=== PATIENT | female | born 1940 | race Caucasian/White ===

== ENCOUNTER 2021-01-11 11:36 | Inpatient (IN) | payer BC, MEDICARE, SELFPAY ==
[~2021-01-11] VITALS: Ht 160 cm; Wt 64.0 kg
[2021-01-11] MEDS ORDERED: CALC600C3 PO (11:53)
[2021-01-11] MEDS ORDERED: fentaNYL 100 MCG/2 ML INJECTION (J3010) IV ONE (12:00)
--- NOTE | 2021-01-11 12:30 | REP ---
INDICATION: trauma. COMPARISON: None. TECHNIQUE: AP pelvis, AP and cross-table lateral right hip. FINDINGS: There is a comminuted fracture of the intertrochanteric region of the proximal right femur, with a separate lesser trochanter fragment. There is medial angulation of the distal femoral shaft. No other fracture or dislocation is seen. There are mild degenerative changes at the hip joints bilaterally symmetrically. There are degenerative changes of the lower lumbar spine. IMPRESSION: Comminuted fracture intertrochanteric region proximal right femur. <Electronically signed by Reza Sanchez > 01/11/21 1133
--- NOTE | 2021-01-11 12:32 | REP ---
INDICATION: preop. COMPARISON: None. TECHNIQUE: SINGLE PORTABLE AP VIEW OF THE CHEST WAS PERFORMED. FINDINGS: THERE IS NO ACUTE INFILTRATE OR PULMONARY EDEMA. LUNGS ARE CLEAR. HEART IS NOT SIGNIFICANTLY ENLARGED. MEDIASTINAL SILHOUETTE IS UNREMARKABLE. THE VISUALIZED OSSEOUS STRUCTURES ARE INTACT. IMPRESSION: NO ACUTE PULMONARY DISEASE. <Electronically signed by Reza Sanchez > 01/11/21 [id number]
[2021-01-11 12:33] LABS: HEMATOCRIT 40.8 % (36.0-47.0); HEMOGLOBIN 13.4 g/dl (12.0-15.5); MEAN CORPUSCULAR HEMOGLOBIN 31.2 pg (27.0-33.0); MEAN CORPUSCULAR HGB CONC 32.8 g/dl (32.0-36.5); MEAN CORPUSCULAR VOLUME 95.1 fl (80.0-96.0); PLATELET COUNT, AUTOMATED 235 10^3/uL (150-450); RED BLOOD COUNT 4.29 10^6/uL (4.00-5.40); WHITE BLOOD COUNT 7.6 10^3/uL (4.0-10.0)
[2021-01-11] MEDS ORDERED: hydrALAZINE 20MG/ML 1ML VIAL (J0360 PER 20MG) IV STA (12:43)
[2021-01-11 12:57] LABS: INR 0.95; PROTHROMBIN TIME 12.9 SECONDS (12.5-14.3)
[2021-01-11 13:01] LABS: BLOOD UREA NITROGEN 14 MG/DL (7-18); CALCIUM LEVEL 8.8 MG/DL (8.8-10.2); CARBON DIOXIDE LEVEL 29 MEQ/L (21-32); CHLORIDE LEVEL 108 MEQ/L (98-107); CREATININE FOR GFR 0.61 MG/DL (0.55-1.30); GLOMERULAR FILTRATION RATE > 60.0 (>32); GLUCOSE, FASTING 109 MG/DL (70-100); POTASSIUM SERUM 3.9 MEQ/L (3.5-5.1); SODIUM LEVEL 141 MEQ/L (136-145)
[2021-01-11] MEDS ORDERED: ESSETAB4 PO (13:02)
[2021-01-11] MEDS ORDERED: MORPHINE 4 MG/ML 1ML VIAL/SYRINGE (J2270) As Ordered ONE (13:45)
[2021-01-11] MEDS ORDERED: MORPHINE 4 MG/ML 1ML VIAL/SYRINGE (J2270) IV PRN (13:45)
[2021-01-11] MEDS ORDERED: MOM 30ML SUSPENSION UDC PO PRN (14:00)
[2021-01-11] MEDS ORDERED: MORPHINE 2 MG/ML 1ML VIAL (J2270) IV PRN ×2 (14:00→18:00)
--- NOTE | 2021-01-11 14:13 | HPEPDOC ---
[facility] Medical History & Physical Date of Admission Jan 11, 2021 Date of Service: Jan 11, 2021 History and Physical Chief complaint: Presented to ER with right hip pain History of present illness: Patient is an 80-year-old female who is not seen a provider in greater than 25 years who presented to the emergency room after falling in a [employer] parking lot in reporting right hip pain. Patient reported that she was ambulating in the parking lot at stumbled when her shoe caught the pavement. Patient landed on her right side. Upon trying to get up. Patient was unable to bear any weight on her right leg reported excruciating pain and was brought to the emergency room for further evaluation. Patient reports that upon arrival, her pain was a 10/10 currently is a 6/10 dull aching aggravated with movement. Patient denies any loss of consciousness or head trauma. Denies any chest pain, short of breath, palpitations, nausea, vomiting, abdominal pain consultation, diarrhea. Denies any urinary discomfort. Has not experienced any recent fevers or chills. Patient reports that 2 weeks prior, she was able to ambulate without limitations because of her arthritis, but has not experience any chest pain or shortness of breath upon ambulating 2 flights of stairs. 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 Review of Systems: 10 point review of systems complete, all negative otherwise stated in HPI Physical exam: - Vitals: BP [188/97], HR [80], RR [18], Sat [97%RA], Temp [99.5F] - General: Lying in bed, No acute distress, Speaking in full sentences, AAOx3 - HEENT: NC, AT, PERRLA - CVS: RRR, +S1S2 - Lungs: Fair air entry bilaterally, No appreciable wheezing / rales / rhonchi - Abdomen: Soft, Non-distended, Non-tender - Extremities: No lower extremity edema, No calf tenderness, right lower extremity appears shorter and externally rotated - Neuro: No focal motor or sensory deficit - Skin: No visible rashes Labs: See below Imaging: XR Hip / Pelvis 01/11: Comminuted fracture intertrochanteric region proximal right femur. CXR 01/11: No acute pulmonary disease. EKG: See below Assessment and Plan: Right hip pain - likely 2/2 comminuted fracture of intertrochanteric region proximal right femur - 2/2 mechanical fall - Patient is reporting currently that right hip pain - Physical reveals shorter and externally rotated right leg - Imaging noted above - EKG and chest x-ray have been reviewed - Patient is currently medically optimized at low to moderate risk for low-risk surgery - Orthopedic surgery has been called on consultation for correction of right hip fracture - Will keep patient NPO - Will start pain control with morphine Hypertensive urgency - BP currently is systolic of 180 - s/p Hydralazine in the ER - Will start Amlodipine PO - Will start Labetalol (Hold for SBP <16) DVT prophylaxis - Will start Heparin Vital Signs Vital Signs Date Time Temp Pulse Resp B/P (MAP) Pulse Ox O2 Delivery O2 Flow Rate FiO2 01/11/21 13:46 18 01/11/21 13:15 188/97 (127) 01/11/21 13:01 80 97 01/11/21 11:46 99.5 Room Air Laboratory Data Labs 24H Laboratory Tests 2 01/11/21 12:27: Nucleated Red Blood Cells % (auto) 0.0, Prothrombin Time 12.9, Prothromb Time International Ratio 0.95, Anion Gap 4L, Glomerular Filtration Rate > 60.0, Calcium Level 8.8 CBC/BMP Laboratory Tests 01/11/21 12:27 Home Medications Scheduled Calcium Carbonate/Vitamin D3 (Calcium 600+D Softgel) 1 Each Capsule, 1 CAP PO DAILY Multivitamin with Folic Acid (One Daily Multivitamin Tablet) 400 Mcg Tablet, 1 TAB PO DAILY Allergies Coded Allergies: No Known Allergies (Unverified , 01/11/21) MICHAEL THAKKAR MD Jan 11, 2021 14:13
--- NOTE | 2021-01-11 16:11 | ECGEPIP ---
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
[2021-01-11 16:19] LABS: RSV AMPLIFICATION NEGATIVE (NEGATIVE)
[2021-01-11 18:13] VITALS: BP 158/72
[2021-01-11] MEDS: HEPARIN SOD (PORCINE) 5000UNITS/ML 1ML VIAL/SYRINGE SC SCH ×2 (18:27→20:00)
[2021-01-11] MEDS ORDERED: fentaNYL 100 MCG/2 ML INJECTION (J3010) As Ordered ONE (18:28)
[2021-01-11] MEDS ORDERED: propofoL 200 MG/20 ML VIAL As Ordered ONE (18:28)
[2021-01-11] MEDS ORDERED: ROCURONIUM BROMIDE 50 MG/5 ML VIAL As Ordered ONE ×2 (18:28→21:22)
[2021-01-11] MEDS ORDERED: ACETAMINOPHEN 1000MG 100ML IV BTL (OFIRMEV) (J0131 PER 10MG) As Ordered ONE (18:28)
[2021-01-11] MEDS ORDERED: ONDANSETRON 4MG/2ML VIAL As Ordered ONE (18:28)
[2021-01-11] MEDS ORDERED: SUGAMMADEX SODIUM 500 MG/5 ML VIAL (BRIDION) As Ordered ONE (18:28)
[2021-01-11] MEDS ORDERED: LIDOCAINE 2% 100MG/5ML SDV (FOR ANES.) As Ordered ONE (18:28)
[2021-01-11] MEDS ORDERED: PHENYLephrine 500MCG 5ML (100MCG/ML) SYRINGE As Ordered ONE ×2 (18:28→21:03)
[2021-01-11] MEDS ORDERED: dexameTHASONE 4 MG/ML 1ML VIAL (J1100 PER 1MG) As Ordered ONE (18:28)
[2021-01-11] MEDS ORDERED: MIDAZOLAM INJ 2MG/2ML VIAL (J2250 PER 1MG) As Ordered ONE (18:28)
[2021-01-11] MEDS ORDERED: ePHEDrine SULFATE 25 MG/5 ML(5MG/ML) SYRINGE As Ordered ONE (18:28)
[2021-01-11] MEDS: amLODIPine 5 MG TAB PO SCH (18:35)
[2021-01-11] MEDS: LABETALOL 100MG/20ML VIAL IV SCH ×2 (18:36→19:59)
[2021-01-11] MEDS: DOCUSATE SODIUM 100MG CAPSULE PO SCH (19:59)
[2021-01-11 20:00] VITALS: BP 167/87
[2021-01-11] MEDS ORDERED: ceFAZolin 2 GM/D5W 50 ML IV BAG (J0690 PER 500MG) As Ordered ONE (20:49)
[2021-01-11] MEDS ORDERED: TRANEXAMIC ACID 100 MG/ML 10ML VIAL As Ordered ONE (21:48)
[2021-01-11] MEDS ORDERED: HYDROmorphone HCL 2 MG/ML 1ML VIAL (J1170) As Ordered ONE (22:12)
[2021-01-12] VITALS (12 sets, daily range): BP systolic 111–160; BP diastolic 55–97
[2021-01-12] MEDS ORDERED: ceFAZolin SOD 2 GM in IV 1 EA IV SCH (01:00)
[2021-01-12] MEDS ORDERED: fentaNYL 100 MCG/2 ML INJECTION (J3010) IV PRN (01:05)
[2021-01-12] MEDS ORDERED: HYDROMORPHONE HCL 0.5 MG/ 0.5 ML SYRINGE (J1170 PER 1) IV PRN (01:05)
[2021-01-12] MEDS ORDERED: oxyCODONE 5MG TAB PO PRN (01:05)
[2021-01-12] MEDS ORDERED: LR 1,000 ML IV SCH (01:05)
[2021-01-12] MEDS ORDERED: ONDANSETRON 4MG/2ML VIAL IV PRN (01:05)
[2021-01-12] MEDS: LABETALOL 100MG/20ML VIAL IV SCH ×2 (03:00→08:51)
[2021-01-12 05:23] LABS: BASO % 0.1 % (0.0-1.0); HEMATOCRIT 28.8 % (36.0-47.0); LYMPH % 10.3 % (24.0-44.0); MEAN CORPUSCULAR HEMOGLOBIN 32.2 pg (27.0-33.0); MEAN CORPUSCULAR HGB CONC 33.7 g/dl (32.0-36.5); MEAN CORPUSCULAR VOLUME 95.7 fl (80.0-96.0); MONO # 0.6 10^3/uL (0.0-0.8); MONO % 6.8 % (2.0-8.0); NEUTROPHILS # 7.8 10^3/uL (1.5-8.5); NEUTROPHILS % 82.5 % (36.0-66.0); PLATELET COUNT, AUTOMATED 186 10^3/uL (150-450); RED BLOOD COUNT 3.01 10^6/uL (4.00-5.40); WHITE BLOOD COUNT 9.5 10^3/uL (4.0-10.0)
[2021-01-12 05:30] LABS: HEMOGLOBIN 9.7 g/dl (12.0-15.5)
[2021-01-12] MEDS: ACETAMINOPHEN TAB 650MG DOSE (2X325MG) PO PRN ×3 (05:42→21:34)
[2021-01-12] MEDS: HEPARIN SOD (PORCINE) 5000UNITS/ML 1ML VIAL/SYRINGE SC SCH ×3 (05:43→21:33)
[2021-01-12 05:44] LABS: BLOOD UREA NITROGEN 16 MG/DL (7-18); CALCIUM LEVEL 7.9 MG/DL (8.8-10.2); CARBON DIOXIDE LEVEL 26 MEQ/L (21-32); CHLORIDE LEVEL 109 MEQ/L (98-107); CREATININE FOR GFR 0.54 MG/DL (0.55-1.30); GLOMERULAR FILTRATION RATE > 60.0 (>32); GLUCOSE, FASTING 165 MG/DL (70-100); MAGNESIUM LEVEL 1.8 MG/DL (1.8-2.4); POTASSIUM SERUM 4.1 MEQ/L (3.5-5.1); SODIUM LEVEL 141 MEQ/L (136-145)
[2021-01-12] MEDS: DOCUSATE SODIUM 100MG CAPSULE PO SCH ×2 (08:54→21:33)
[2021-01-12] MEDS: amLODIPine 5 MG TAB PO SCH (08:54)
--- NOTE | 2021-01-12 09:19 | REP ---
INDICATION: IM NAIL IN OR. COMPARISON: Radiographs 01/11/2021. TECHNIQUE: Multiple C-arm views right femur. FINDINGS: There is placement of metallic internal fixation, including an intramedullary kavon, for a comminuted fracture of the proximal right femur. The osseous structures are well-aligned. There is a separate lesser trochanter fragment. IMPRESSION: 338 seconds fluoroscopy time utilized. <Electronically signed by Reza Sanchez > 01/12/21 0915
--- NOTE | 2021-01-12 11:06 | IPNPDOC ---
Text Note Date of Service The patient was seen on 01/12/21. NOTE Subjective: Patient is an 80-year-old female who is not seen a provider in greater than 25 years who presented to the ER after falling in a [employer] parking lot in reporting right hip pain. Patient was found to have a right hip fracture and was admitted to the hospitalist service for further evaluation and treatment. Orthopedic surgery was called on consultation. Patient was seen and examined at the bedside. Patient reports that she has had an uneventful evening. She denies any chest pain, shortness of breath or palpitations. Has not experience any abdominal pain, diarrhea, or urinary discomfort Objective: Vitals (See below) General: Lying in bed, appears comfortable, AAOx3 HEENT: NC, AT CVS: +S1S2 Lungs: Fair air entry b/l, no appreciated wheezing, rhonchi or rales Abdomen: Soft, nondistended and nontender Extremities: - Edema, - Calf tenderness Imaging: XR Hip / Pelvis 01/11: Comminuted fracture intertrochanteric region proximal right femur. CXR 01/11: No acute pulmonary disease. Assessment and Plan: Right hip pain - likely 2/2 comminuted fracture of intertrochanteric region proximal right femur - 2/2 mechanical fall - Patient has reported improvement of right hip pain. She will be working with physical therapy today - Imaging noted above - EKG and chest x-ray have been reviewed - s/p surgical correction 01/11/2021 - Orthopedic surgery on consultation; appreciate their input - Will discontinue morphine; will start tramadol PRN s/p Hypertensive urgency - likely 2/2 pain - BP currently is well controlled - s/p Hydralazine in the ER - Will DC Labetalol - c/w Amlodipine DVT prophylaxis - c/w Heparin Disposition: - Will start PT / OT; will likely require rehabilitation VS,Fishbone, I+O VS, Fishbone, I+O Laboratory Tests 01/11/21 12:27 01/12/21 05:11 Vital Signs Date Time Temp Pulse Resp B/P (MAP) Pulse Ox O2 Delivery O2 Flow Rate FiO2 01/12/21 08:54 81 130/62 01/12/21 05:15 97.2 17 97 Room Air 01/12/21 04:15 1.0 I&O- Last 24 Hours up to 6 AM 01/12/21 06:00 Intake Total 2120 ml Output Total 375 ml Balance 1745 ml MICHAEL THAKKAR MD Jan 12, 2021 11:06
--- NOTE | 2021-01-12 11:33 | ER ---
ER CONSULTATION DATE: 01/11/2021 TIME: 5 P.M. CONSULTING SERVICE: Orthopedic surgery. CONSULTING PHYSICIAN: Rashad Dunne MD. HISTORY OF PRESENT ILLNESS: This is an 80-year-old female with a right intertrochanteric fracture. The patient is a very pleasant 80-year-old community ambulator who sustained a ground-level fall after attending [employer] services this morning on 01/11/2021. The patient presented to the [facility] Emergency Department after she was unable to bear weight to the right hip. The patient described pain with attempted motion of the right hip. Orthopedic surgery was consulted for the aforementioned injury and she was indicated for a right hip cephalomedullary nail for her right intertrochanteric fracture. PAST MEDICAL HISTORY: Bilateral knee arthritis. Denies other medical issues. PAST SURGICAL HISTORY: The patient had a left knee arthroscopy decades prior. ALLERGIES: The patient denies. CURRENT MEDICATIONS: Vitamin D. SOCIAL HISTORY: The patient denies smoking. Social alcohol. Denies any IV drug use. Lives alone. Denies recent travel or sick contacts. REVIEW OF SYSTEMS: 14-point review of systems is negative unless is otherwise described in the HPI above. PHYSICAL EXAMINATION: Alert to person, time, and place. Right lower extremity the patient's right hip was in flexion, abduction, and external rotation on presentation. The patient had pain with a positive log roll sign. The patient otherwise had intact motor strength to the EHL, FHL, tibialis anterior, gastroc soleus muscular, and peroneal musculature. She had sensation intact to light touch to the deep sural, saphenous, and tibial nerve distributions. The patient had 2+ dorsalis pedis and posterior tibial arterial pulse. She has brisk cap refill to the digits. There were no skin abrasions. IMAGING DATA: On AP pelvis imaging demonstrates a right intertrochanteric fracture with a fracture of the lesser trochanter with shortening of the right hip. IMPRESSION: An 80-year-old female with a right intertrochanteric fracture requiring internal fixation in order to facilitate ambulation. PLAN: This patient is a relatively healthy 80-year-old female who was a previous community ambulator. The patient is indicated for a right hip cephalomedullary nail in order to enable weightbearing as tolerated. The patient will undergo the aforementioned surgery on the jessica of 01/11/2021. Medicine has cleared the patient for surgery. The patient is COVID negative and n.p.o. for the last eight hours.
--- NOTE | 2021-01-12 11:49 | RO ---
OPERATIVE NOTE DATE OF OPERATION: 01/11/2021 TIME: 9:30 p.m. PREOPERATIVE DIAGNOSIS: Comminuted intertrochanteric fracture of the hip with subtrochanteric extension. POSTOPERATIVE DIAGNOSIS: Comminuted intertrochanteric fracture of the hip with subtrochanteric extension. NAME OF OPERATION: Right hip long cephalomedullary nail placement. SURGEON: Rashad Dunne MD LICENSED ELECTRICIAN: None. SUPERVISING ATTENDING: Rashad Dunne MD FINDINGS: Comminuted and displaced right intertrochanteric fracture with subtrochanteric extension. INDICATIONS: This was a pleasant, 80-year-old female who sustained a ground-level fall on the morning of 01/11/2021 after attending [employer] service and fell on her right hip. The patient has significant pain in the right hip and inability to bear weight after her fall. She sustained the aforementioned injury. She was evaluated by orthopedic surgeon, myself, in the emergency department and indicated for a right hip long cephalomedullary nail placement. ANESTHESIA: GETA. TOURNIQUET TIME: None used. ESTIMATED BLOOD LOSS: 200 mL. IV FLUIDS: Please see anesthesia report. IV ANTIBIOTICS: 2 grams of Ancef. ESTIMATED BLOOD LOSS: 200 mL IMPLANTS: Synthes. CULTURES: None. SPECIMENS: None. DESCRIPTION OF PROCEDURE: The patient was met in the preoperative holding area where the patient's operative extremity was signed, the patient's consent was confirmed to be correct, and the patient's identity was confirmed to be correct. The patient was then transported to the operating theater where she was placed supine on a fracture table. A safety strap secured the patient to the bed. All bony prominences were well padded. The contralateral lower extremities had an SCD placed. A timeout was called. This confirmed the correct patient, correct operative extremity and correct consent. All staff was in agreement. The patient was then draped in the usual sterile fashion. We began the procedure by obtaining fluoroscopic images of the patient's right hip. This confirmed our suspicion that she had a comminuted right intertochanteric fracture with subtrochanteric extension. There were no other fractures of the femur distally. At this point in time, we performed two percutaneous incisions, one on the anterior aspect of the right femoral neck with a ball spike pusher, the second being on the anterolateral aspect of the thigh in order to use a bone hook in order to elevate the patient's proximal femur. Using these instruments and by extending the proximal fragment, i.e., the femoral neck and elevating the femoral shaft, we were able to obtain a provisional reduction which was held in place through the reaming and nail placement process. I then made a one inch skin incision four fingerbreadths proximal to the most proximal aspect of the greater trochanter. I incised the skin sharply and incised the IT band. I used a threaded guide pin which was placed just medial to the tip of the greater trochanter on the AP views. This was center/center on the femoral neck and shaft views on the lateral view. This was introduced to the level of the lesser trochanter. At this point in time, we then used an entry reamer to obtained access to the femoral canal. We then removed the threaded guide pin as well as the entry reamer. At this point in time, I placed a ball tip guidewire down the length of the femur within the intramedullary canal. This was placed at the level of the physeal scar. This was confirmed on fluoroscopy. We then measured off his ball point guidewire measuring 360 mm. We then used the guidewire to sequentially ream from a 9 to a 12-1/2. We then inserted an 11 mm nail using light taps of the mallet and this was placed while providing provisional reduction using the aforementioned techniques. Once this was placed to the appropriate level, I made a small lateral thigh incision in order to place a bone hook above the calcar in order to lateralize the proximal fragment. This was held in place until completion of her lag screw. We then assembled the jig which we used for the lag screw within the femoral neck. We used a threaded guide pin in order to establish the correct length, drilled and then placed a 90 mm lag screw through the femoral neck while lateralizing the proximal fragment. We then used the internal compression device in order to gain compression through the intertrochanteric fracture. Once this was complete, we then secured the set screw. We then let longitudinal traction off the patient's right lower extremity in order to let the subtrochanteric fracture settle. Once this was achieved, I used perfect anvik technique in order to place two distal interlocking screws. We then removed all instrumentation connecting to the nail, copiously irrigated the surgical site using three liters of normal saline and closed the IT band into the proximal incision using 0 Vicryl. We closed the skin using 2-0 Vicryl followed by metallic sonia. We placed Xeroform followed by 4x4s and Tegaderms about all the surgical incisions. The patient was then extubated without complication and transported to the postanesthesia care unit. The patient will follow the right hip long cephalomedullary nail rehab protocol which includes weightbearing as tolerated and strengthening exercises to the patient's right lower extremity. The patient's care will be transferred to the hospitalist service. The patient will follow up with orthopedics clinic on the or January, for a two week postoperative wound check in my clinic. The patient will be given the appropriate pain medications by her internal medicine team. Discharge medications include [id number] Tylenol.
[2021-01-12] MEDS: OMEPRAZOLE 20 MG CAP PO SCH (14:05)
[2021-01-13] MEDS: traMADol 50 MG TAB PO PRN (02:01)
[2021-01-13] MEDS: HEPARIN SOD (PORCINE) 5000UNITS/ML 1ML VIAL/SYRINGE SC SCH ×3 (05:24→21:16)
[2021-01-13 06:00] VITALS: BP 118/52
[2021-01-13 07:30] LABS: BASO % 0.3 % (0.0-1.0); HEMATOCRIT 24.7 % (36.0-47.0); HEMOGLOBIN 8.3 g/dl (12.0-15.5); LYMPH # 1.7 10^3/uL (1.5-5.0); LYMPH % 22.5 % (24.0-44.0); MEAN CORPUSCULAR HEMOGLOBIN 32.4 pg (27.0-33.0); MEAN CORPUSCULAR HGB CONC 33.6 g/dl (32.0-36.5); MEAN CORPUSCULAR VOLUME 96.5 fl (80.0-96.0); MONO # 0.9 10^3/uL (0.0-0.8); MONO % 12.2 % (2.0-8.0); NEUTROPHILS # 4.9 10^3/uL (1.5-8.5); NEUTROPHILS % 64.6 % (36.0-66.0); PLATELET COUNT, AUTOMATED 181 10^3/uL (150-450); RED BLOOD COUNT 2.56 10^6/uL (4.00-5.40); WHITE BLOOD COUNT 7.5 10^3/uL (4.0-10.0)
[2021-01-13 07:48] LABS: BLOOD UREA NITROGEN 19 MG/DL (7-18); CALCIUM LEVEL 8.5 MG/DL (8.8-10.2); CARBON DIOXIDE LEVEL 28 MEQ/L (21-32); CHLORIDE LEVEL 107 MEQ/L (98-107); CREATININE FOR GFR 0.57 MG/DL (0.55-1.30); GLOMERULAR FILTRATION RATE > 60.0 (>32); GLUCOSE, FASTING 101 MG/DL (70-100); MAGNESIUM LEVEL 2.2 MG/DL (1.8-2.4); POTASSIUM SERUM 3.8 MEQ/L (3.5-5.1); SODIUM LEVEL 142 MEQ/L (136-145)
[2021-01-13] MEDS: ACETAMINOPHEN TAB 650MG DOSE (2X325MG) PO PRN ×3 (07:49→21:15)
[2021-01-13] MEDS: OMEPRAZOLE 20 MG CAP PO SCH (09:25)
[2021-01-13] MEDS: DOCUSATE SODIUM 100MG CAPSULE PO SCH ×2 (09:25→21:16)
[2021-01-13] MEDS: amLODIPine 5 MG TAB PO SCH (09:26)
[2021-01-13 14:00] VITALS: BP 142/70
--- NOTE | 2021-01-13 17:52 | IPNPDOC ---
Text Note Date of Service The patient was seen on 01/13/21. NOTE Subjective: Patient is an 80-year-old female who is not seen a provider in greater than 25 years who presented to the ER after falling in a [employer] parking lot in reporting right hip pain. Patient was found to have a right hip fracture and was admitted to the hospitalist service for further evaluation and treatment. Orthopedic surgery was called on consultation. Patient was seen and examined at the bedside. No new medical complaints. No acute overnight events reported. Objective: Vitals (See below) General: Lying in bed, appears comfortable, AAOx3 HEENT: NC, AT CVS: +S1S2 Lungs: Fair air entry b/l, no appreciated wheezing, rhonchi or rales Abdomen: Soft, nondistended and nontender Extremities: - Edema, - Calf tenderness Imaging: XR Hip / Pelvis 01/11: Comminuted fracture intertrochanteric region proximal right femur. CXR 01/11: No acute pulmonary disease. Assessment and Plan: Right hip pain - likely 2/2 comminuted fracture of intertrochanteric region proximal right femur - 2/2 mechanical fall - Patient has reported improvement of right hip pain. She will be working with physical therapy today - Imaging noted above - EKG and chest x-ray have been reviewed - s/p surgical correction 01/11/2021 - Orthopedic surgery on consultation; appreciate their input - Will discontinue morphine; will start tramadol PRN s/p Hypertensive urgency - likely 2/2 pain - BP currently is well controlled - s/p Hydralazine in the ER - Will DC Labetalol - c/w Amlodipine DVT prophylaxis - c/w Heparin Disposition: - Pending insurance approval for discharge to ARU. VS,Fishbone, I+O VS, Fishbone, I+O Laboratory Tests 01/13/21 06:11 Vital Signs Date Time Temp Pulse Resp B/P (MAP) Pulse Ox O2 Delivery O2 Flow Rate FiO2 01/13/21 14:00 98.2 85 18 142/70 (94) 98 Room Air 01/12/21 04:15 1.0 I&O- Last 24 Hours up to 6 AM 01/13/21 06:00 Intake Total 540 ml Output Total 1025 ml Balance -485 ml VAISHALI BATES MD Jan 13, 2021 17:52
[2021-01-13 22:00] VITALS: BP 146/70
[2021-01-14] VITALS (14 sets, daily range): BP systolic 118–178; BP diastolic 62–79
[2021-01-14] MEDS: ACETAMINOPHEN TAB 650MG DOSE (2X325MG) PO PRN ×5 (03:39→23:10)
[2021-01-14] MEDS: HEPARIN SOD (PORCINE) 5000UNITS/ML 1ML VIAL/SYRINGE SC SCH ×2 (05:49→14:27)
[2021-01-14] MEDS: traMADol 50 MG TAB PO PRN (06:01)
[2021-01-14 07:19] LABS: BASO % 0.4 % (0.0-1.0); EOS % 0.1 % (0.0-3.0); HEMATOCRIT 22.9 % (36.0-47.0); HEMOGLOBIN 7.4 g/dl (12.0-15.5); LYMPH # 2.6 10^3/uL (1.5-5.0); LYMPH % 35.6 % (24.0-44.0); MEAN CORPUSCULAR HEMOGLOBIN 31.1 pg (27.0-33.0); MEAN CORPUSCULAR HGB CONC 32.3 g/dl (32.0-36.5); MEAN CORPUSCULAR VOLUME 96.2 fl (80.0-96.0); MONO # 0.8 10^3/uL (0.0-0.8); MONO % 10.8 % (2.0-8.0); NEUTROPHILS # 3.9 10^3/uL (1.5-8.5); NEUTROPHILS % 52.8 % (36.0-66.0); PLATELET COUNT, AUTOMATED 181 10^3/uL (150-450); RED BLOOD COUNT 2.38 10^6/uL (4.00-5.40); WHITE BLOOD COUNT 7.3 10^3/uL (4.0-10.0)
[2021-01-14 07:49] LABS: BLOOD UREA NITROGEN 17 MG/DL (7-18); CALCIUM LEVEL 7.9 MG/DL (8.8-10.2); CARBON DIOXIDE LEVEL 28 MEQ/L (21-32); CHLORIDE LEVEL 107 MEQ/L (98-107); CREATININE FOR GFR 0.51 MG/DL (0.55-1.30); GLOMERULAR FILTRATION RATE > 60.0 (>32); GLUCOSE, FASTING 94 MG/DL (70-100); MAGNESIUM LEVEL 2.1 MG/DL (1.8-2.4); POTASSIUM SERUM 3.6 MEQ/L (3.5-5.1); SODIUM LEVEL 140 MEQ/L (136-145)
[2021-01-14] MEDS: OMEPRAZOLE 20 MG CAP PO SCH (08:38)
--- NOTE | 2021-01-14 08:38 | IPN ---
PROGRESS NOTE DATE: 01/14/2021 SUBJECTIVE: Shobha is seen on [address] [place] status post right hip fracture with right hip nail placement on 01/11. Today she feels "dizzy and weak." She is anemic. Blood counts have been steadily falling. Nursing staff concerned about hematoma. OBJECTIVE: VITAL SIGNS: Afebrile, vital signs stable. LUNGS: Clear. HEART: Regular rate and rhythm. ABDOMEN: Soft, nontender. EXTREMITIES: Trace peripheral edema. Swelling around fracture site noted. LABS: Hemoglobin is down to 7.4. It was 9.7 two days ago, 8.4 yesterday. Electrolytes are unremarkable. IMPRESSION AND PLAN: 1. Acute blood loss anemia secondary to a hip fracture. We will get an ultrasound of the hip, ask orthopedics to evaluate the site. Transfuse 2 units of packed red blood cells. The patient gives me consent for this. 2. Hypertension. Blood pressure is well controlled.
[2021-01-14] MEDS: amLODIPine 5 MG TAB PO SCH (08:42)
[2021-01-14] MEDS: DOCUSATE SODIUM 100MG CAPSULE PO SCH ×2 (08:42→22:02)
--- NOTE | 2021-01-14 10:24 | REP ---
INDICATION: R/O hematoma. COMPARISON: None. TECHNIQUE: Real-time sonographic evaluation of right lateral hip soft tissues performed. FINDINGS: There is an oval hypoechoic area in the lateral soft tissues which is most consistent with a postsurgical hematoma, measuring 5.7 x 1.7 x 4.8 cm. IMPRESSION: Postsurgical hematoma 5.7 x 1.7 x 4.8 cm. <Electronically signed by Reza Sanhcez > 01/14/21 1022
[2021-01-14] MEDS: RAMELTEON 8 MG TAB (ROZEREM) PO PRN (23:09)
[2021-01-15] MEDS: ACETAMINOPHEN TAB 650MG DOSE (2X325MG) PO PRN ×5 (03:48→21:59)
[2021-01-15 06:00] VITALS: BP 157/70
[2021-01-15 07:03] LABS: BASO % 0.3 % (0.0-1.0); EOS % 0.5 % (0.0-3.0); HEMATOCRIT 29.6 % (36.0-47.0); LYMPH # 2.4 10^3/uL (1.5-5.0); LYMPH % 32.8 % (24.0-44.0); MEAN CORPUSCULAR HEMOGLOBIN 31.7 pg (27.0-33.0); MEAN CORPUSCULAR HGB CONC 33.4 g/dl (32.0-36.5); MEAN CORPUSCULAR VOLUME 94.9 fl (80.0-96.0); MONO # 0.8 10^3/uL (0.0-0.8); MONO % 10.2 % (2.0-8.0); NEUTROPHILS # 4.2 10^3/uL (1.5-8.5); NEUTROPHILS % 55.9 % (36.0-66.0); PLATELET COUNT, AUTOMATED 198 10^3/uL (150-450); RED BLOOD COUNT 3.12 10^6/uL (4.00-5.40); WHITE BLOOD COUNT 7.4 10^3/uL (4.0-10.0)
[2021-01-15 07:04] LABS: HEMOGLOBIN 9.9 g/dl (12.0-15.5)
[2021-01-15 07:34] LABS: BLOOD UREA NITROGEN 17 MG/DL (7-18); CALCIUM LEVEL 8.4 MG/DL (8.8-10.2); CARBON DIOXIDE LEVEL 25 MEQ/L (21-32); CHLORIDE LEVEL 106 MEQ/L (98-107); CREATININE FOR GFR 0.47 MG/DL (0.55-1.30); GLOMERULAR FILTRATION RATE > 60.0 (>32); GLUCOSE, FASTING 96 MG/DL (70-100); MAGNESIUM LEVEL 2.1 MG/DL (1.8-2.4); POTASSIUM SERUM 3.4 MEQ/L (3.5-5.1); SODIUM LEVEL 139 MEQ/L (136-145)
[2021-01-15 08:25] VITALS: BP 122/70
[2021-01-15] MEDS: OMEPRAZOLE 20 MG CAP PO SCH (08:59)
[2021-01-15] MEDS: amLODIPine 5 MG TAB PO SCH (08:59)
[2021-01-15] MEDS: DOCUSATE SODIUM 100MG CAPSULE PO SCH ×2 (09:00→21:55)
--- NOTE | 2021-01-15 09:05 | IPN ---
PROGRESS NOTE DATE: 01/15/2021 SUBJECTIVE: Shobha's ultrasound confirmed a hematoma of 5.7 x 1.7 x 4.8 over the lateral soft tissues. Hemoglobin is stabilized after transfusion yesterday. She does not feel dizzy, weak or lightheaded today. I did speak with Dr. Dunne yesterday and we are awaiting his evaluation. OBJECTIVE: VITAL SIGNS: Afebrile. Vital signs are stable. LUNGS: Clear. HEART: Regular rate and rhythm. ABDOMEN: Soft, nontender. EXTREMITIES: Her dressing is blood-soaked over the right hip. Good distal neurovascular function. LABORATORY DATA: Hemoglobin is 9.9. Potassium is 4.3. IMPRESSION: 1. Postop anemia secondary to acute blood loss. Transfuse yesterday. Serial CBCs have been ordered. I spoke with Dr. Dunne yesterday. Anticipate seeing her today. 2. Hypertension, blood pressure well-controlled on amlodipine 5 mg daily. 3. Sleep disturbance under better control with Rozerem 8 mg q.h.s.
[2021-01-15 14:00] VITALS: BP 148/67
[2021-01-15 21:17] VITALS: BP 147/66
[2021-01-15] MEDS: RAMELTEON 8 MG TAB (ROZEREM) PO PRN (21:55)
[2021-01-16] MEDS: ACETAMINOPHEN TAB 650MG DOSE (2X325MG) PO PRN ×3 (04:26→12:35)
[2021-01-16 05:34] VITALS: BP 148/65
[2021-01-16 06:49] LABS: BASO % 0.3 % (0.0-1.0); EOS # 0.1 10^3/uL (0.0-0.5); EOS % 0.9 % (0.0-3.0); HEMATOCRIT 31.5 % (36.0-47.0); HEMOGLOBIN 10.3 g/dl (12.0-15.5); LYMPH # 2.5 10^3/uL (1.5-5.0); LYMPH % 35.2 % (24.0-44.0); MEAN CORPUSCULAR HEMOGLOBIN 31.2 pg (27.0-33.0); MEAN CORPUSCULAR HGB CONC 32.7 g/dl (32.0-36.5); MEAN CORPUSCULAR VOLUME 95.5 fl (80.0-96.0); MONO # 0.8 10^3/uL (0.0-0.8); MONO % 10.7 % (2.0-8.0); NEUTROPHILS # 3.7 10^3/uL (1.5-8.5); NEUTROPHILS % 52.6 % (36.0-66.0); PLATELET COUNT, AUTOMATED 267 10^3/uL (150-450)
[2021-01-16 07:16] LABS: BLOOD UREA NITROGEN 21 MG/DL (7-18); CALCIUM LEVEL 7.9 MG/DL (8.8-10.2); CARBON DIOXIDE LEVEL 26 MEQ/L (21-32); CHLORIDE LEVEL 108 MEQ/L (98-107); CREATININE FOR GFR 0.52 MG/DL (0.55-1.30); GLOMERULAR FILTRATION RATE > 60.0 (>32); GLUCOSE, FASTING 100 MG/DL (70-100); MAGNESIUM LEVEL 2.1 MG/DL (1.8-2.4); POTASSIUM SERUM 3.5 MEQ/L (3.5-5.1); SODIUM LEVEL 141 MEQ/L (136-145)
[2021-01-16] MEDS: DOCUSATE SODIUM 100MG CAPSULE PO SCH (08:24)
[2021-01-16 08:25] VITALS: BP 148/65
[2021-01-16] MEDS: amLODIPine 5 MG TAB PO SCH (08:25)
[2021-01-16] MEDS: OMEPRAZOLE 20 MG CAP PO SCH (08:25)
[2021-01-16] MEDS ORDERED: RAME8TAB2 PO (08:56)
[2021-01-16] MEDS ORDERED: AMLO1TAB24 PO (08:56)
--- NOTE | 2021-01-16 09:24 | DSES ---
DISCHARGE SUMMARY DATE OF ADMISSION: 01/11/2021 DATE OF DISCHARGE: 01/16/2021 PRINCIPAL DIAGNOSIS: Right hip fracture. SECONDARY DIAGNOSES: 1. Acute blood loss anemia secondary to hip fracture. 2. Hematoma. 3. Hypertension. HISTORY OF PRESENT ILLNESS: The patient fell and fractured her right hip. Underwent right hip nail placement by orthopedics on 01/12. I assumed her care on 01/14. HOSPITAL COURSE: It looks like hospital course was uncomplicated. On 01/12, she went to the OR for right hip long cephalomedullary nail placement by Dr. Dunne. Postoperative course was complicated by development of hematoma over her right hip, which was confirmed by ultrasound. This seems to be slowly regressing. She developed some anemia and ended up being transfused two units of packed red blood cells. Hemoglobin remained stable after this. DISCHARGE PHYSICAL EXAMINATION: GENERAL: On the day of discharge, she is resting comfortably. HEENT: Unremarkable. LUNGS: Clear. HEART: Regular rhythm. ABDOMEN: Soft and nontender with no masses. EXTREMITIES: Small hematoma over the right hip. LABORATORY DATA: White count 7, hemoglobin 10.3, platelets 267,000. Sodium 141, potassium 3.5, BUN 21, creatinine 0.5. COVID test negative. DISCHARGE PLAN: Discharged in stable condition to [facility]. DISCHARGE ACTIVITY: As tolerated per orthopedics. DISCHARGE DIET: No added salt. DISCHARGE INSTRUCTIONS: Follow-up with primary care provider a week after her discharge from [facility]. DISCHARGE MEDICATIONS: 1. Amlodipine 5 mg daily. 2. Remeron 8 mg q. h.s. 3. Tylenol and tramadol for pain. At the time of this dictation there are no pending labs.
[2021-01-16] MEDS ORDERED: ECOT81TA5 PO (10:05)
== END 2021-01-16 14:20 | disposition home health service (06) | DRG 481 ==
LOC: M ED 11:36 → M ED INP 13:58 → ENRESERV 16:31 → M PCU 17:57 → M MS5PR 01-12 12:25
PROVIDERS: ADMIT Internal Medicine; ATTEND Family Medicine
PROC: 0QS636Z Reposition Right Upper Femur with Intramedullary Internal Fixation Device, Percutaneous Approach (ICD-10-PCS; principal; 2021-01-11 15:30)
PROC: 30233N1 Transfusion of Nonautologous Red Blood Cells into Peripheral Vein, Percutaneous Approach (ICD-10-PCS; 2021-01-14)
DX: S72.141A Displaced intertrochanteric fracture of right femur, initial encounter for closed fracture (principal); D62 Acute posthemorrhagic anemia; W18.09XA Striking against other object with subsequent fall, initial encounter; Y92.481 Parking lot as the place of occurrence of the external cause; Y99.8 Other external cause status; Y93.89 Activity, other specified; I16.0 Hypertensive urgency; M17.0 Bilateral primary osteoarthritis of knee; I10 Essential (primary) hypertension

== ENCOUNTER → 2021-01-30 | Outpatient (CLI) | payer MEDICARE ==
[~2021-01-30] MED LIST: AMLO1TAB24 PO; CALC600C3 PO; ECOT81TA5 PO; ESSETAB4 PO; RAME8TAB2 PO
--- NOTE | 2021-01-30 12:36 | REP ---
INDICATION: RIGHT. COMPARISON: Comparison radiographs 11 January 2021.. TECHNIQUE: AP pelvis and AP and frogleg views of the right hip are obtained. FINDINGS: Patient is status post intramedullary kavon and femoral neck screw fixation for inter trochanteric fracture right hip. Hardware position and fracture alignment unchanged from the intraoperative radiographs 01/11/2021. There is mild vascular calcification. IMPRESSION: Status post pin kavon fixation inter trochanteric fracture right hip. <Electronically signed by Miguel Whitaker > 01/30/21 [id number]
--- NOTE | 2021-01-30 12:45 | REP ---
INDICATION: RIGHT. COMPARISON: Comparison radiographs 11 January 2021.. TECHNIQUE: Four views of the right femur. FINDINGS: Four views of the right femur demonstrate femoral intramedullary kavon and femoral neck screw transfixing comminuted inter trochanteric fracture which is unchanged in position. Some vascular calcification is seen. Mild osteoarthritis spurring is seen at the hip and knee. IMPRESSION: Status post pinning inter trochanteric fracture on the right. <Electronically signed by Miguel Whitaker > 01/30/21 [id number]
== END ==
LOC: M SOG 10:40
PROVIDERS: ATTEND Orthopaedic Surgery
DX: M25.551 Pain in right hip (principal); Z96.698 Presence of other orthopedic joint implants

== ENCOUNTER → 2021-02-24 | Outpatient (CLI) | payer MEDICARE ==
--- NOTE | 2021-02-24 11:07 | REP ---
INDICATION: F/U FX. COMPARISON: None. TECHNIQUE: AP and lateral views of the right femur. FINDINGS: Visualized portions of the femur demonstrate intramedullary kavon placement and no obvious acute fracture Street. Extensive osteopenia and degenerative changes at the knee joint noted periods IMPRESSION: 1. Visualized portions of the femur demonstrate osteopenia and advanced degenerative changes at the knee. 2. Intramedullary kavon in satisfactory position. <Electronically signed by Jesse Quick > 02/24/21 1100
--- NOTE | 2021-02-24 11:08 | REP ---
INDICATION: F/U FX COMPARISON: None. TECHNIQUE: AP and cross-table lateral views. FINDINGS: Patient is status post satisfactory orthopedic fixation for intertrochanteric proximal femoral fracture. Subtle callus formation is suggested. IMPRESSION: 4 status post open reduction and fixation with healing fracture. <Electronically signed by Jesse Quick > 02/24/21 1103
== END ==
LOC: M SOG 10:07
PROVIDERS: ATTEND Orthopaedic Surgery
DX: S72.141D Displaced intertrochanteric fracture of right femur, subsequent encounter for closed fracture with routine healing (principal)

== ENCOUNTER → 2021-04-09 | Outpatient (CLI) | payer MEDICARE ==
--- NOTE | 2021-04-09 12:33 | REP ---
INDICATION: DISPL INTERTROCH FX R FEMUR. COMPARISON: 02/24/2021 TECHNIQUE: Two views of the pelvis. FINDINGS: Patient is status post open reduction and fixation for proximal right femur fracture. Findings are unchanged. Alignment is maintained. Remainder of the examination demonstrates age-related osteopenia and degenerative changes throughout the pelvis and hips. IMPRESSION: No significant change from prior examination. <Electronically signed by Jesse Quick > 04/09/21 [id number]
--- NOTE | 2021-04-09 12:35 | REP ---
INDICATION: FX F/U. COMPARISON: 02/24/2021 TECHNIQUE: AP and frog-lateral views of the right femur FINDINGS: Patient is again noted to be status post satisfactory open reduction and fixation for comminuted intertrochanteric femur fracture. The appearance to the fracture remains relatively stable. Underlying osteopenia and advanced degenerative changes primarily affecting the knee are again noted. IMPRESSION: No significant change from prior examination. Stable satisfactory fixation for intertrochanteric proximal femur fracture. <Electronically signed by Jesse Quick > 04/09/21 2147
== END ==
LOC: M SOG 09:39
PROVIDERS: ATTEND Orthopaedic Surgery
DX: S72.141D Displaced intertrochanteric fracture of right femur, subsequent encounter for closed fracture with routine healing (principal); M85.88 Other specified disorders of bone density and structure, other site; M17.11 Unilateral primary osteoarthritis, right knee

== ENCOUNTER → 2021-08-11 | Outpatient (CLI) | payer MEDICARE ==
--- NOTE | 2021-08-11 10:12 | REP ---
INDICATION: RT FEMUR FX. COMPARISON: 04/09/2021 TECHNIQUE: AP pelvis FINDINGS: Previously described right proximal femoral fracture and ORIF with lag screw and intramedullary kavon status quo. No acute fracture is identified. Chronic changes are seen involving the imaged portion the spine, sacroiliac joints, left hip. IMPRESSION: No significant change <Electronically signed by Wisam Hall > 08/11/21 [id number]
--- NOTE | 2021-08-11 11:21 | REP ---
INDICATION: RT FEMUR FX. COMPARISON: 04/09/2021 TECHNIQUE: AP and lateral views FINDINGS: Status post ORIF with intramedullary kavon placement and femoral neck lag screw placement status quo. There are no acute changes from the last exam. IMPRESSION: Stable exam. <Electronically signed by Wisam Hall > 08/11/21 1116
== END ==
LOC: M SOG 07:50
PROVIDERS: ATTEND Orthopaedic Surgery
DX: S72.141D Displaced intertrochanteric fracture of right femur, subsequent encounter for closed fracture with routine healing (principal); Y92.9 Unspecified place or not applicable; Y93.9 Activity, unspecified; Y99.9 Unspecified external cause status

== ENCOUNTER → 2022-10-05 | Outpatient (CLI) | payer MEDICARE | LOC: M EKG 11:13 | PROVIDERS: ATTEND Physician Assistant | DX: Z01.818 Encounter for other preprocedural examination (principal); R00.1 Bradycardia, unspecified ==

== ENCOUNTER 2022-11-02 06:49 | Day surgery (SDC) | payer MEDICARE ==
[~2022-11-02] VITALS: Ht 160 cm; Wt 60.7 kg
[~2022-11-02 06:49] MED LIST changes: +BSS IRR 500ML/OMIDRIA 4ML IRR BAG (OR ONLY) As Ordered ONE; +CALCCAP4 PO; +CEFUROXIME 1MG/0.1ML INTRACAMERAL INJ As Ordered ONE; +CYCLOPENTOLATE 1% OPHTH SOLN 2ML BTL OS SCH; +LIDOCAINE 1% SDV 5ML VIAL As Ordered ONE; +OFLOXACIN 0.3 % (OCUFLOX) OPTH SOL 5ML OS SCH; +PHENYLEPHRINE 2.5% OPHTH SOL 2ML OS SCH; +PROPARACAINE 0.5% OPHTH SOL 15ML OS ONE; +TROPICAMIDE 1% OPHTH SOLN 15ML OS SCH; +VITMTA PO
[2022-11-02] MEDS ORDERED: MIDAZOLAM INJ 2MG/2ML VIAL As Ordered ONE (08:05)
[2022-11-02] MEDS ORDERED: ONDANSETRON 4MG 2ML VIAL As Ordered ONE (08:06)
[2022-11-02 08:26] VITALS: BP 164/70
== END 2022-11-02 08:45 | disposition home or self-care (01) ==
LOC: M SDC 06:49
PROVIDERS: ATTEND Ophthalmology
DX: H25.12 Age-related nuclear cataract, left eye (principal); Z79.899 Other long term (current) drug therapy
CPT/HCPCS: 66984; J0697; J1097; J2250; J2405; V2632

== ENCOUNTER 2025-07-31 15:47 | Inpatient (IN) | payer MEDICARE ==
[~2025-07-31] VITALS: Ht 160 cm; Wt 58.0 kg
[~2025-07-31 15:47] MED LIST changes: -BSS IRR 500ML/OMIDRIA 4ML IRR BAG (OR ONLY) As Ordered ONE; -CEFUROXIME 1MG/0.1ML INTRACAMERAL INJ As Ordered ONE; -CYCLOPENTOLATE 1% OPHTH SOLN 2ML BTL OS SCH; -LIDOCAINE 1% SDV 5ML VIAL As Ordered ONE; -OFLOXACIN 0.3 % (OCUFLOX) OPTH SOL 5ML OS SCH; -PHENYLEPHRINE 2.5% OPHTH SOL 2ML OS SCH; -PROPARACAINE 0.5% OPHTH SOL 15ML OS ONE; -TROPICAMIDE 1% OPHTH SOLN 15ML OS SCH
[2025-07-31] MEDS ORDERED: ISOVUE-370 76% 100 ML VIAL As Ordered ONE (15:58)
[2025-07-31 16:22] LABS: BASO # 0.0 10^3/uL (0.0-0.2); BASO % 0.2 % (0.0-1.0); EOS # 0.0 10^3/uL (0.0-0.5); EOS % 0.2 % (0.0-3.0); LYMPH # 1.8 10^3/uL (1.5-5.0); LYMPH % 20.5 % (24.0-44.0); MONO # 0.7 10^3/uL (0.0-0.8); MONO % 8.2 % (2.0-8.0); NEUTROPHILS # 6.2 10^3/uL (1.5-8.5); NEUTROPHILS % 70.7 % (36.0-66.0); PLATELET COUNT, AUTOMATED 259 10^3/uL (150-450)
[2025-07-31] MEDS ORDERED: OLME20TA50 PO (16:28)
[2025-07-31 16:31] LABS: CALCIUM LEVEL 8.8 MG/DL (8.3-10.6); CARBON DIOXIDE LEVEL 26.0 MMOL/L (20-31); CHLORIDE LEVEL 109.0 MMOL/L (98-107); CREATININE FOR GFR 0.84 MG/DL (0.55-1.30); GLOMERULAR FILTRATION RATE 67.6 (>32); POTASSIUM SERUM 4.1 MMOL/L (3.5-5.1); SODIUM LEVEL 144.0 MMOL/L (136-145)
[2025-07-31 17:06] LABS: INR 0.97
[2025-07-31] MEDS ORDERED: HOME MED LIST COMPLETE! XX SCH (17:15)
[2025-07-31] MEDS ORDERED: MAALOX 30 ML SUSP *UDC PO PRN (21:20)
[2025-07-31] MEDS ORDERED: MOM 30 ML SUSPENSION UDC PO PRN (21:20)
[2025-07-31] MEDS: ASPIRIN 81 MG CHEWABLE TABLET PO ONE (23:28)
[2025-07-31] MEDS: CLOPIDOGREL 75 MG TAB PO ONE (23:28)
[2025-08-01 07:12] LABS: PLATELET COUNT, AUTOMATED 213 10^3/uL (150-450)
[2025-08-01 07:33] LABS: ALT/SGPT 14.0 U/L (7.0-40); AST/SGOT 25.0 U/L (<34); CALCIUM LEVEL 8.5 MG/DL (8.3-10.6); CARBON DIOXIDE LEVEL 26.0 MMOL/L (20-31); CHLORIDE LEVEL 110.0 MMOL/L (98-107); CHOLESTEROL LEVEL 173.0 MG/DL (<200); CHOLESTEROL RISK RATIO 2.36 (<5); CREATININE FOR GFR 0.71 MG/DL (0.55-1.30); GLOMERULAR FILTRATION RATE 82.8 (>32); LDL CHOLESTEROL 85.4 MG/DL (<100); MAGNESIUM LEVEL 1.9 MG/DL (1.8-2.4); NON-HDL-C 99.8 MG/DL; POTASSIUM SERUM 3.9 MMOL/L (3.5-5.1); SODIUM LEVEL 146.0 MMOL/L (136-145); TRIGLYCERIDES LEVEL 72.0 MG/DL (<150)
[2025-08-01 08:21] LABS: ESTIMATED AVERAGE GLUCOSE 100.0 MG/DL (60-110)
[2025-08-01] MEDS: CLOPIDOGREL 75 MG TAB PO SCH (08:36)
[2025-08-01] MEDS: DOCUSATE SODIUM 100 MG CAPSULE PO SCH (08:36)
[2025-08-01] MEDS: PANTOPRAZOLE 40MG VIAL IV SCH (08:36)
[2025-08-01] MEDS: ACETAMINOPHEN 325 MG TAB PO PRN (08:38)
[2025-08-01] MEDS ORDERED: OLMESARTAN MEDOXOMIL 20 MG TAB PO SCH (09:00)
[2025-08-01] MEDS: ASPIRIN 81 MG CHEWABLE TABLET PO SCH (12:19)
[2025-08-01 16:13] VITALS: BP 153/63; TEMP 98.4; O2SAT 96
[2025-08-01] MEDS: RIVAROXABAN 10MG TAB PO SCH (18:54)
[2025-08-01 20:17] VITALS: BP 153/66; TEMP 98.4; O2SAT 96
[2025-08-01 20:20] VITALS: BP 153/66; TEMP 98.4; O2SAT 96
[2025-08-01] MEDS: ATORVASTATIN 20 MG TAB PO SCH (20:49)
[2025-08-01] MEDS: FAMOTIDINE 20 MG TAB PO SCH (20:50)
[2025-08-02 03:33] VITALS: BP 124/50; TEMP 99; O2SAT 95
[2025-08-02 04:00] VITALS: BP 124/50; TEMP 99; O2SAT 95
[2025-08-02 06:37] LABS: BASO # 0.0 10^3/uL (0.0-0.2); BASO % 0.5 % (0.0-1.0); EOS # 0.1 10^3/uL (0.0-0.5); EOS % 1.3 % (0.0-3.0); LYMPH # 2.7 10^3/uL (1.5-5.0); LYMPH % 43.3 % (24.0-44.0); MONO # 0.6 10^3/uL (0.0-0.8); MONO % 9.8 % (2.0-8.0); NEUTROPHILS # 2.8 10^3/uL (1.5-8.5); NEUTROPHILS % 44.9 % (36.0-66.0); PLATELET COUNT, AUTOMATED 226 10^3/uL (150-450)
[2025-08-02 07:01] LABS: CALCIUM LEVEL 7.8 MG/DL (8.3-10.6); CARBON DIOXIDE LEVEL 25.0 MMOL/L (20-31); CHLORIDE LEVEL 107.0 MMOL/L (98-107); CREATININE FOR GFR 0.73 MG/DL (0.55-1.30); GLOMERULAR FILTRATION RATE 80.0 (>32); POTASSIUM SERUM 3.8 MMOL/L (3.5-5.1); SODIUM LEVEL 142.0 MMOL/L (136-145)
[2025-08-02 12:00] VITALS: BP 153/77; TEMP 98.2; O2SAT 96
[2025-08-02 20:00] VITALS: BP 118/67; TEMP 98.2; O2SAT 95
[2025-08-02 20:40] VITALS: BP 118/67; TEMP 98.2; O2SAT 95
[2025-08-03 00:15] VITALS: BP 121/46; TEMP 98.2; O2SAT 94
[2025-08-03 04:00] VITALS: BP 115/45; TEMP 97.3; O2SAT 97
[2025-08-03 04:51] VITALS: BP 115/63; TEMP 97.3; O2SAT 97
[2025-08-03 11:52] VITALS: BP 114/61; TEMP 98.2; O2SAT 96
[2025-08-03 12:00] VITALS: BP 114/67; TEMP 98.2; O2SAT 96
[2025-08-03 20:00] VITALS: BP 113/56; TEMP 98.4; O2SAT 93
[2025-08-04 04:00] VITALS: BP 114/55; TEMP 98.1; O2SAT 97
[2025-08-04 12:00] VITALS: BP 128/63; TEMP 98.2; O2SAT 97
[2025-08-04 20:00] VITALS: BP 115/65; TEMP 98.1; O2SAT 96
[2025-08-05 04:00] VITALS: BP 166/76; TEMP 97.5; O2SAT 94
[2025-08-05 06:21] LABS: BASO # 0.0 10^3/uL (0.0-0.2); BASO % 0.2 % (0.0-1.0); EOS # 0.1 10^3/uL (0.0-0.5); EOS % 1.3 % (0.0-3.0); LYMPH # 2.1 10^3/uL (1.5-5.0); LYMPH % 34.5 % (24.0-44.0); MONO # 0.6 10^3/uL (0.0-0.8); MONO % 9.1 % (2.0-8.0); NEUTROPHILS # 3.4 10^3/uL (1.5-8.5); NEUTROPHILS % 54.7 % (36.0-66.0); PLATELET COUNT, AUTOMATED 248 10^3/uL (150-450)
[2025-08-05 06:54] LABS: CALCIUM LEVEL 8.4 MG/DL (8.3-10.6); CARBON DIOXIDE LEVEL 25.0 MMOL/L (20-31); CHLORIDE LEVEL 109.0 MMOL/L (98-107); CREATININE FOR GFR 0.71 MG/DL (0.55-1.30); GLOMERULAR FILTRATION RATE 82.8 (>32); POTASSIUM SERUM 3.6 MMOL/L (3.5-5.1); SODIUM LEVEL 145.0 MMOL/L (136-145)
[2025-08-05 12:00] VITALS: BP 161/98; TEMP 98.6; O2SAT 98
[2025-08-05 20:15] VITALS: BP 159/94; TEMP 98.1; O2SAT 97
[2025-08-06 04:06] VITALS: BP 156/53; TEMP 98.1; O2SAT 98
[2025-08-06] MEDS: ASPIRIN 81 MG ENTERIC TABLET PO SCH (08:16)
[2025-08-06] MEDS: OLMESARTAN MEDOXOMIL 20 MG TAB PO SCH (08:31)
[2025-08-06 12:23] VITALS: BP 124/58; TEMP 98.4; O2SAT 94
[2025-08-06 20:52] VITALS: BP 127/62; TEMP 98.4; O2SAT 97
[2025-08-07 05:10] VITALS: BP 110/52; TEMP 98.1; O2SAT 94
[2025-08-07 08:57] VITALS: BP 148/80
[2025-08-07] MEDS ORDERED: ATOR80TA59 PO (11:00)
[2025-08-07] MEDS ORDERED: ASPI-424 PO (11:00)
[2025-08-07] MEDS ORDERED: CLOP75TA2 PO (11:00)
== END 2025-08-07 15:40 | disposition home health service (06) | DRG 65 ==
LOC: M ED 15:47 → EDBD 15:47 → M ED INP 15:48 → OBSVTOIN 08-01 06:54 → M MSPAV 08-01 16:12
PROVIDERS: ADMIT Student in an Organized Health Care Education/Training Program; ATTEND Internal Medicine
PROC: B246ZZZ Ultrasonography of Right and Left Heart (ICD-10-PCS; principal; 2025-08-07)
DX: I63.531 Cerebral infarction due to unspecified occlusion or stenosis of right posterior cerebral artery (principal); G81.92 Hemiplegia, unspecified affecting left dominant side; I10 Essential (primary) hypertension; K21.9 Gastro-esophageal reflux disease without esophagitis; I65.22 Occlusion and stenosis of left carotid artery; R31.9 Hematuria, unspecified; Z79.899 Other long term (current) drug therapy

== ENCOUNTER → 2025-09-10 | Outpatient (CLI) | payer MEDICARE ==
[~2025-09-10] MED LIST changes: +ASPI-424 PO; +ATOR80TA59 PO; +CLOP75TA2 PO; +OLME20TA50 PO; +POTA-151 PO
== END ==
LOC: M CARPUL 08:32
PROVIDERS: ATTEND Internal Medicine Cardiovascular Disease
DX: R07.9 Chest pain, unspecified (principal); I34.9 Nonrheumatic mitral valve disorder, unspecified
CPT/HCPCS: 78452; 93017; A9500; J2785

== ENCOUNTER 2025-09-16 06:48 | Day surgery (SDC) | payer MEDICARE ==
[~2025-09-16] VITALS: Ht 152.4 cm; Wt 57.6 kg
[2025-09-16] MEDS ORDERED: LIDOCAINE 2% 100 MG/5 ML SDV (FOR ANES.) As Ordered ONE (06:57)
[2025-09-16] MEDS ORDERED: dexAMETHasone 4 MG/ML 1 ML VIAL As Ordered ONE (06:57)
[2025-09-16] MEDS ORDERED: ONDANSETRON 4MG/2ML VIAL As Ordered ONE (06:57)
[2025-09-16] MEDS: LR 1,000 ML IV SCH (07:39)
[2025-09-16] MEDS: CETACAINE SPRAY 5 GM As Ordered ONE (08:05)
[2025-09-16 08:35] VITALS: BP 104/51; TEMP 97.6; O2SAT 96
== END 2025-09-16 09:04 | disposition home or self-care (01) ==
LOC: M SDC 06:48
PROVIDERS: ATTEND Internal Medicine Cardiovascular Disease
DX: I34.81 Nonrheumatic mitral (valve) annulus calcification (principal); I70.0 Atherosclerosis of aorta; I69.334 Monoplegia of upper limb following cerebral infarction affecting left non-dominant side; I10 Essential (primary) hypertension; E78.5 Hyperlipidemia, unspecified; M19.90 Unspecified osteoarthritis, unspecified site; Z79.899 Other long term (current) drug therapy; Z79.02 Long term (current) use of antithrombotics/antiplatelets
CPT/HCPCS: 93312; 93320; 93325; J1100; J2405